=== PATIENT | female | born 1980 | race Caucasian/White ===

== ENCOUNTER 2021-11-17 11:39 | Outpatient (CLI) | payer OTHER, SELFPAY ==
[2021-11-17 13:47] LABS: Free T4 Free Thyroxine 1.09 ng/mL (0.78-2.19)
[2021-11-17 13:59] LABS: Thyroid Stimulating Hormone 0.177 uIU/mL (0.465-4.680)
[2021-11-19 13:53] LABS: Triiodothyronine T3 Free 3.2 pg/mL (2.3-4.2)
== END 2021-11-17 11:40 | disposition home or self-care (01) ==
LOC: ANHWCLAB 11:42
PROVIDERS: PCP Hospitalist; Visit Provider Nurse Practitioner Family
DX: E04.1 Nontoxic single thyroid nodule (principal)
CPT/HCPCS: 36415; 84439; 84443; 84481